=== PATIENT | female | born 1935 | race Caucasian/White ===

== ENCOUNTER → 2020-03-15 | Outpatient (CLI) | payer MEDICARE, OTHER, BC ==
--- NOTE | 2020-03-15 12:57 | RADIOLOGY REPORT (SQ) ---
EXAM DESCRIPTION: MRI LUMBAR SPINE WITHOUT IMAGES COMPLETED DATE/TIME: 03/15/2020 11:43 am REASON FOR STUDY: (M54.5)LOW BACK PAIN M54.5 LOW BACK PAIN COMPARISON: None. TECHNIQUE: Sagittal and Axial imaging includes T1, T2, STIR and gradient echo sequences. Coronal T2/ HASTE imaging. LIMITATIONS: None. FINDINGS: VISUALIZED UPPER ABDOMEN: Limited evaluation. No acute or suspicious findings suggested. SEGMENTATION: No transitional anatomy. The lowest well-developed disc space is labeled L5-S1. ALIGNMENT: Grade 1 anterolisthesis of L4 on L5. VERTEBRAE: Intact. BONE MARROW: There are some reactive changes. DISC SIGNAL: All the lumbar disc spaces are narrowed. There is decreased T2 signal intensity. There is irregularity of the vertebral endplates at T12-L1 raising the possibility of prior discitis. POSTERIOR ELEMENTS: Generally intact. No pars defect evident. HARDWARE: None in the spine. CORD AND CONUS: Normal in size and signal intensity. Conus at the T12-L1 level. SOFT TISSUES: No aortic aneurysm seen. No bulky retroperitoneal adenopathy or mass. No paraspinal mas s or fluid. T12-L1: Circumferential disc bulging. Facet and ligament hypertrophy. Mild central canal stenosis and right foraminal stenosis. L1-L2: Circumferential disc bulging with facet and ligament hypertrophy resulting in central canal st enosis and mild foraminal stenoses. L2-L3: Asymmetrical circumferential disc bulging with facet and ligament hypertrophy. Central canal stenosis. Left foraminal stenosis. L3-L4: Circumferential disc bulging with facet and ligament hypertrophy. Mild central canal stenosis and foraminal stenoses, left more than right. L4-L5: There is unroofing of the disc with broad-based disc bulge and facet and ligament hypertrophy. Mild central canal stenosis. Bilateral foraminal stenoses. L5-S1: No significant spinal stenosis or exit foraminal stenosis. LOWER THORACIC: Incompletely imaged. No stenosis seen. SACRUM: Visualized upper sacrum intact. OTHER: No other significant findings. IMPRESSION: Multilevel disc bulging and multilevel facet arthropathy resulting in varying degrees of central canal and foraminal stenoses as described. Anterolisthesis of L4 on L5. TECHNICAL DOCUMENTATION: JOB ID: [id number] 2010 [id number]- All Rights Reserved Reading location - IP/workstation name: [email or web address]
== END ==
LOC: RAD 10:53
PROVIDERS: ATTEND Internal Medicine
DX: M51.86 Other intervertebral disc disorders, lumbar region (principal); M54.5 Low back pain
CPT/HCPCS: 72148